=== PATIENT | female | born 1965 | race African-American/Black ===

== ENCOUNTER 2018-08-07 10:33 | Emergency (ER) | payer SELFPAY ==
[~2018-08-07] VITALS: Ht 167.6 cm; Wt 124.7 kg
[2018-08-07 10:43] VITALS: BP 149/96; Ht 167.6 cm; Wt 124.7 kg
== END 2018-08-07 13:04 | disposition home or self-care (01) ==
LOC: ED 10:33
DX: M46.92 Unspecified inflammatory spondylopathy, cervical region (principal)
CPT/HCPCS: 72072

== ENCOUNTER 2018-08-08 02:26 | Emergency (ER) | payer SELFPAY ==
[~2018-08-08] VITALS: Ht 167.6 cm; Wt 126.1 kg
[2018-08-08 02:43] VITALS: Ht 167.6 cm; Wt 126.1 kg
[2018-08-08 03:34] LABS: CALCIUM 9.4 mg/dL (8.5-10.1); CARBON DIOXIDE 26.3 mmol/L (21-32); CHLORIDE SERUM 106 mmol/L (98-107); GFR1 > 60 mL/min; GLUCOSE SERUM 115 mg/dL (74-106); POTASSIUM SERUM 4.1 mmol/L (3.5-5.1); SODIUM SERUM 143 mmol/L (136-145)
[2018-08-08 03:39] LABS: BASOPHIL % 0.4 % (0-2); PLATELET COUNT 284 x10^3mcL (130-400)
[2018-08-08 03:42] LABS: RED CELL DISTRIBUTION WIDTH 14.8 % (11.5-14.5)
[2018-08-08 03:50] LABS: ALBUMIN 3.5 g/dL (3.4-5.0); ALKALINE PHOSPHATASE 76 U/L (46-116); ALT/SGPT 32 U/L (14-59); AST/SGOT 13 U/L (15-37); BILIRUBIN TOTAL 0.35 mg/dL (0.20-1.00); TOTAL PROTEIN, SERUM 7.8 g/dL (6.4-8.2)
[2018-08-08 04:17] VITALS: BP 121/71
== END 2018-08-08 04:17 | disposition home or self-care (01) ==
LOC: ED 02:26
PROVIDERS: Emergency Medicine
DX: R25.2 Cramp and spasm (principal); M62.830 Muscle spasm of back; M41.34 Thoracogenic scoliosis, thoracic region
CPT/HCPCS: 36415